=== PATIENT | female | born 1975 | race African-American/Black ===

== ENCOUNTER → 2017-11-21 | Outpatient (CLI) | payer OTHER | END | disposition home or self-care (01) | LOC: KCIC MAMMO 09:57 | DX: N63.20 Unspecified lump in the left breast, unspecified quadrant (principal); N63.21 Unspecified lump in the left breast, upper outer quadrant; N60.02 Solitary cyst of left breast; R92.2 Inconclusive mammogram | CPT/HCPCS: 76641; 77066 ==